=== PATIENT | female | born 1980 | race Caucasian/White ===

== ENCOUNTER 2020-06-19 02:29 | Emergency (ER) | payer SELFPAY ==
[2020-06-19 02:34] VITALS: PULSE 117; RESP 28; TEMP 35.8; O2SAT 100; BMI 27.4
--- NOTE | 2020-06-19 02:41 | ED_ITS ---
HPI - Abdominal Pain General: Chief Complaint: Abdominal Pain Stated Complaint: severe ab pain Time Seen by Provider: 06/19/20 02:37 Source: patient Mode of arrival: ambulatory Limitations: no limitations History of Present Illness: HPI narrative: 39-year-old female states she had sudden abdominal pain 3 hours ago. States the pain is diffuse in nature and severe. She rates her pain a 10 out of 10. She has had nausea denies any diarrhea or vomiting. She denies any fever. Denies any worsening improving factors. MD elicited complaint: abdominal pain Associated Symptoms: Denies chills, diarrhea, dysuria, fever(s), nausea and vomiting Review of Systems Const: Denies: fever(s), chills, body aches or change in appetite Eyes: Denies: blurry vision or eye discomfort ENMT: Denies: throat pain or dental pain Card: Denies: chest pain Resp: Denies: dyspnea GI: Denies: abdominal pain, nausea, vomiting or diarrhea : Denies: dysuria Musc: Denies: neck pain or back pain Skin/Breast: Denies: rash Neuro: Denies: headache(s) Psych: Denies: depression Garth/Lymph: Denies: easy bruising All/Imm: Denies: urticaria Physical Exam Const: COMMON NORMALS: no acute distress, patient oriented x3 and healthy appearing HENMT: COMMON NORMALS: normocephalic and atraumatic HEAD & SCALP: normocephalic and atraumatic Eye: COMMON NORMALS: Equal, round and reactive pupils present and EOMs intact bilaterally PUPIL: Yes Equal, round and reactive pupils present Neck/C-Spine: COMMON NORMALS: full ROM and supple Chest: COMMONS NORMALS: normal inspection of the chest and normal palpation of entire chest wall Resp: COMMON NORMALS: normal respiratory effort, No retractions, No use of accessory muscles and clear to auscultation bilaterally AUSCULTATION: clear to auscultation bilaterally Cardio: COMMON NORMALS: regular rate, regular rhythm and No murmurs present (Cardio) RATE: regular rate RHYTHM: regular rhythm GI: COMMON NORMALS: Normal to inspection, nondistended, normoactive bowel sounds present, Soft to palpation and no masses PALPATION: Yes Soft to palpation and Yes Tenderness to palpation present (GI) (diffuse tenderness) Extremity: COMMON NORMALS: normal to inspection and full ROM Neuro: COMMON NORMALS: patient oriented x3, moves all extremities and no focal motor deficits Psych: COMMON NORMALS: mental status grossly normal, Normal thought process present and cooperative THOUGHT PROCESS: Normal thought process present Skin: COMMON NORMALS: no rashes or lesions noted and no wounds GENERAL SKIN EXAM: no rashes or lesions noted Course Vital Signs: Vital signs: Vital Signs Temperature 96.4 F L 06/19/20 02:34 Pulse Rate 80 06/19/20 03:56 Respiratory Rate 12 06/19/20 03:56 Blood Pressure 179/116 06/19/20 03:56 Pulse Oximetry 99 06/19/20 03:56 MDM - Abdominal Pain MDM Narrative: Medical decision making narrative: Kassandra presents with abdominal pain likely from constipation. Her CT and blood work here are otherwise normal. Patient's urine drug screen did test positive for marijuana and methamphetamine. Her pain is improved here and her exam at discharge is benign with no signs of acute surgical abdomen. Her lactate level is normal as well. We will place her on MiraLAX and she is stable for discharge. She is to follow-up with her PCP and return if worsening. Lab Data: Labs: Lab Results 06/19/20 06/19/20 06/19/20 Range/Units 02:45 02:45 02:45 WBC 9.5 (4.0-10.0) 10^3/ uL RBC 5.03 (4.1-5.3) 10^6/u L Hgb 13.8 (11.5-15.3) g/dL Hct 43.0 (37.0-47.0) % MCV 85.5 (81-99) fL MCH 27.4 L (28.0-34.0) pg MCHC 32.1 (30.0-36.0) g/dL RDW 13.3 (12.1-15.1) % Plt Count 330 (130-400) 10^3/c mm MPV 8.9 (7.4-10.4) fL Neut % (Auto) 68.3 % Lymph % (Auto) 26.0 % [place] % (Auto) 5.1 % Eos % (Auto) 0.3 % Baso % (Auto) 0.2 % Neut # (Auto) 6.51 (1.8-7.7) 10^3/u L Lymph # (Auto) 2.5 (0.8-4.8) 10^3/u L [place] # (Auto) 0.5 (0.2-0.9) 10^3/u L Eos # (Auto) 0.0 (0.0-0.8) 10^3/u L Baso # (Auto) 0.0 (0.0-0.1) 10^3/u L Nucleated RBC % (a uto) 0 % Nucleated RBCs # 0.0 /100WBC Sodium 140 (136-145) mmol/L Potassium 4.3 (3.5-5.1) mmol/L Chloride 104 (98-107) mmol/L Carbon Dioxide 26 (22-29) mmol/L Anion Gap 14.3 (5-19) BUN 11 (6-20) mg/dL Creatinine 0.8 (0.5-0.9) mg/dL GFR Calculation 79.9 L (90-130) mL/min Glucose 107 (65-115) mg/dL Calculated Osmolal ity 290 (285-295) mOsm/k g Lactate 2.1 (0.5-2.2) mmol/L Calcium 9.6 (8.5-10.5) mg/dL Total Bilirubin 0.3 (0.15-1.2) mg/dL AST 22 (0-32) U/L ALT 29 (0-33) U/L Alkaline Phosphata se 83 (35-105) IU/L Total Protein 7.8 (6.6-8.7) g/dL Albumin 3.9 (3.5-5.2) g/dL Globulin 3.9 (1.3-4.6) g/dL Lipase 18 (13-60) U/L Urine Color (Yellow) Urine Appearance (CLEAR) Urine pH (5-7) Ur Specific Gravit y (1.005-1.030) Urine Protein (Negative) Urine Glucose (UA) (Normal) Urine Ketones (Negative) Urine Blood (Negative) Urine Nitrate (Negative) Urine Bilirubin (Negative) Prot Sulfosalicyli c Acd (Negative) Urine Urobilinogen (Negative) mg/dL Ur Leukocyte July ase (Negative) Urine RBC (0-2) /hpf Urine WBC (0-5) /hpf Ur Squamous Epith Cells (0-5) /hpf Amorphous Sediment /hpf Urine Bacteria (NONE) /hpf Urine Opiates Scre en (Negative) ng/mL Ur Barbiturates Sc reen (Negative) ng/mL Ur Phencyclidine S crn (Negative) ng/mL Ur Amphetamines Sc reen (Negative) ng/mL U Benzodiazepines Scrn (Negative) ng/mL Urine Cocaine Scre en (Negative) ng/mL U Marijuana (THC) Screen (Negative) ng/mL 06/19/20 06/19/20 Range/Units 04:40 04:40 WBC (4.0-10.0) 10^3/ uL RBC (4.1-5.3) 10^6/u L Hgb (11.5-15.3) g/dL Hct (37.0-47.0) % MCV (81-99) fL MCH (28.0-34.0) pg MCHC (30.0-36.0) g/dL RDW (12.1-15.1) % Plt Count (130-400) 10^3/c mm MPV (7.4-10.4) fL Neut % (Auto) % Lymph % (Auto) % [place] % (Auto) % Eos % (Auto) % Baso % (Auto) % Neut # (Auto) (1.8-7.7) 10^3/u L Lymph # (Auto) (0.8-4.8) 10^3/u L [place] # (Auto) (0.2-0.9) 10^3/u L Eos # (Auto) (0.0-0.8) 10^3/u L Baso # (Auto) (0.0-0.1) 10^3/u L Nucleated RBC % (a uto) % Nucleated RBCs # /100WBC Sodium (136-145) mmol/L Potassium (3.5-5.1) mmol/L Chloride (98-107) mmol/L Carbon Dioxide (22-29) mmol/L Anion Gap (5-19) BUN (6-20) mg/dL Creatinine (0.5-0.9) mg/dL GFR Calculation (90-130) mL/min Glucose (65-115) mg/dL Calculated Osmolal ity (285-295) mOsm/k g Lactate (0.5-2.2) mmol/L Calcium (8.5-10.5) mg/dL Total Bilirubin (0.15-1.2) mg/dL AST (0-32) U/L ALT (0-33) U/L Alkaline Phosphata se (35-105) IU/L Total Protein (6.6-8.7) g/dL Albumin (3.5-5.2) g/dL Globulin (1.3-4.6) g/dL Lipase (13-60) U/L Urine Color Yellow (Yellow) Urine Appearance Hazy A (CLEAR) Urine pH 9 H (5-7) Ur Specific Gravit y 1.010 (1.005-1.030) Urine Protein Neg (Negative) Urine Glucose (UA) Norm (Normal) Urine Ketones Negative (Negative) Urine Blood Neg (Negative) Urine Nitrate Negative (Negative) Urine Bilirubin Neg (Negative) Prot Sulfosalicyli c Acd Negative (Negative) Urine Urobilinogen Norm (Negative) mg/dL Ur Leukocyte July ase Negative (Negative) Urine RBC None (0-2) /hpf Urine WBC None (0-5) /hpf Ur Squamous Epith Cells 0-4 H (0-5) /hpf Amorphous Sediment 1+ /hpf Urine Bacteria 1+ H (NONE) /hpf Urine Opiates Scre en Positive H (Negative) ng/mL Ur Barbiturates Sc reen Negative (Negative) ng/mL Ur Phencyclidine S crn Negative (Negative) ng/mL Ur Amphetamines Sc reen Positive H (Negative) ng/mL U Benzodiazepines Scrn Negative (Negative) ng/mL Urine Cocaine Scre en Negative (Negative) ng/mL U Marijuana (THC) Screen Positive H (Negative) ng/mL Imaging Data ^: CT Abd/Pel: Attestation: I personally reviewed and interpreted this imaging study as follows: My impression: [address] [place] [address] CT Scan Report Signed Patient: Kassandra Moses Unit #: [id number] : 1980 Age/Sex: 39 / F ADM Date: 06/19/20 Loc: ER Room/Bed: Attending Dr: Ordering Provider/Ordering MD: Matt Baker MD Date of Service: 06/19/20 Procedure(s): CT abdomen pelvis w con* [id number] Accession Number(s): [id number] Report Number: [id number] PROCEDURE INFORMATION: Exam: CT Abdomen And Pelvis With Contrast Exam date and time: 06/19/2020 4:25 AM Age: 39 years old Clinical indication: Abdominal pain; Generalized; Additional info: Abd pain TECHNIQUE: Imaging protocol: Computed tomography of the abdomen and pelvis with contrast. Radiation optimization: All CT scans at this facility use at least one of these dose optimization techniques: automated exposure control; mA and/or kV adjustment per patient size (includes targeted exams where dose is matched to clinical indication); or iterative reconstruction. Contrast material: OMNI 300; Contrast volume: 95 ml; Contrast route: INTRAVENOUS (IV); COMPARISON: No relevant prior studies available. RADIATION DOSE METRICS: Total DLP (mGy-cm): 598.46 FINDINGS: Liver: Normal. No mass. Gallbladder and bile ducts: Normal. No calcified stones. No ductal dilation. Pancreas: Normal. No ductal dilation. Spleen: Normal. No splenomegaly. Adrenal glands: Normal. No mass. Kidneys and ureters: Normal. No hydronephrosis. Stomach and bowel: Unremarkable. No obstruction. Large amount of fecal residue is present in the colon specially on the right side. Appendix: No evidence of appendicitis. Intraperitoneal space: Unremarkable. No free air. No significant fluid collection. Vasculature: Unremarkable. No abdominal aortic aneurysm. Lymph nodes: Unremarkable. No enlarged lymph nodes. Urinary bladder: Unremarkable as visualized. Reproductive: Unremarkable as visualized. Bones/joints: Degenerative changes are present. No acute fracture. Soft tissues: Unremarkable. CT/CT abdomen pelvis w con* [id number] IMPRESSION: No significant abnormality is seen. Constipation is noted. Discharge Plan Discharge Patient Disposition: Home Clinical Impression: Abdominal pain Qualifiers: Abdominal location: unspecified location Qualified Code(s): R10.9 - Unspecified abdominal pain Constipation Qualifiers: Constipation type: unspecified constipation type Qualified Code(s): K59.00 - Constipation, unspecified Condition: Stable Prescriptions: New Miralax 17 gram/dose powder 17 g PO DAILY PRN (Reason: constipation) Qty: 119 RF: 0 Discharge Orders: Discharge ED (Routine); Ordered 06/19/20 Ordered By: Matt Baker Discharge Diet: Advance as tolerated Discharge Activity: Resume usual activity Patient Instructions: Abdominal Pain (ED) Coding Level of Care Code ED Pharmacy Technologist for Chg Fwd Exam Comprehensive
[2020-06-19 02:49] VITALS: BP 185/101; PULSE 116; RESP 18; O2SAT 98
[2020-06-19] MEDS: sodium chloride 0.9% 1,000 ML 999 ML IV (02:49)
[2020-06-19] MEDS: diphenhydrAMINE 50 mg/mL SDV 1mL IVP (02:49)
[2020-06-19 02:50] VITALS: RESP 24; O2SAT 98
[2020-06-19] MEDS: morphine 4 mg/mL SDV 1 mL IVP (02:50)
[2020-06-19] MEDS: metoclopramide 5 mg/mL SDV 2 mL 10 MG IVP (02:50)
[2020-06-19 02:51] LABS: Basophils % 0.2 %; Eosinophils % 0.3 %; Hemoglobin 13.8 g/dL (11.5-15.3); Lymphocytes # 2.5 10^3/uL (0.8-4.8); Mean Corpuscular HGB Conc 32.1 g/dL (30.0-36.0); Mean Corpuscular Hemoglobin 27.4 pg (28.0-34.0); Mean Corpuscular Volume 85.5 fL (81-99); Mean Platelet Volume 8.9 fL (7.4-10.4); Monocytes # 0.5 10^3/uL (0.2-0.9); Monocytes % 5.1 %; Neutrophils # 6.51 10^3/uL (1.8-7.7); Neutrophils % 68.3 %; Nucleated Red Blood Cells % 0 %; Platelet Count 330 10^3/cmm (130-400); Red Blood Count 5.03 10^6/uL (4.1-5.3); Red Cell Distribution Width 13.3 % (12.1-15.1); White Blood Count 9.5 10^3/uL (4.0-10.0)
[2020-06-19 03:07] LABS: Lactate (Lactic Acid level) 2.1 mmol/L (0.5-2.2)
[2020-06-19 03:12] LABS: Alanine Aminotransferase 29 U/L (0-33); Albumin Level 3.9 g/dL (3.5-5.2); Alkaline Phosphatase 83 IU/L (35-105); Anion Gap 14.3 (5-19); Aspartate Amino Transferase 22 U/L (0-32); Blood Urea Nitrogen 11 mg/dL (6-20); Calcium 9.6 mg/dL (8.5-10.5); Carbon Dioxide 26 mmol/L (22-29); Chloride 104 mmol/L (98-107); Creatinine Clr Calc Pharmacy 85.3665; Globulin 3.9 g/dL (1.3-4.6); Glomerular Filtration Rate 79.9 mL/min (90-130); Glucose 107 mg/dL (65-115); Lipase 18 U/L (13-60); Osmolality Calculated 290 mOsm/kg (285-295); Potassium 4.3 mmol/L (3.5-5.1); Sodium 140 mmol/L (136-145); Total Bilirubin 0.3 mg/dL (0.15-1.2); Total Protein 7.8 g/dL (6.6-8.7)
[2020-06-19 03:17] VITALS: BP 185/109; PULSE 112; RESP 24; O2SAT 100
[2020-06-19 03:56] VITALS: BP 179/116; PULSE 80; RESP 12; O2SAT 99
[2020-06-19] MEDS: iohexol 300 mg/mL 100 mL Btl IV (04:26)
[2020-06-19 04:51] LABS: Amphetamines Screen Urine Positive (Negative); Barbiturates Screen Urine Negative (Negative); Benzodiazepines Screen Urine Negative (Negative); Cocaine Screen Urine Negative (Negative); Opiate Screen Urine Positive (Negative); PCP Screen Urine Negative (Negative); THC Screen Urine Positive (Negative)
[2020-06-19 04:54] LABS: Add Urine Microscopic? YES; Bilirubin Urine Neg (Negative); Blood Urine Neg (Negative); Glucose Urine UA Norm (Normal); Ketones Urine Negative (Negative); Leukocyte Esterase Urine Negative (Negative); Nitrate Urine Negative (Negative); Protein Urine Neg (Negative); Sulfosalicylic Acid Urine Negative (Negative); Urine Appearance Hazy (CLEAR); Urine Color Yellow (Yellow); Urobilinogen Urine Norm (Negative); pH Urine 9 (5-7)
[2020-06-19 04:55] LABS: Add Urine Culture? No; Amorphous Sediment Urine 1+ /hpf; Bacteria Urine 1+ /hpf; Squamous Epithelial Cell Urine 0-4 /hpf (0-5)
[2020-06-19] MEDS: lactulose oral liq 20 gm/30 mL UDC PO (04:59)
[2020-06-19 05:10] VITALS: BP 167/115; PULSE 94; RESP 18; O2SAT 96
== END 2020-06-19 05:12 | disposition home or self-care (01) ==
PROVIDERS: Emergency Provider Emergency Medicine
DX: K59.00 Constipation, unspecified (principal)
CPT/HCPCS: 74177; 80053; 80306; 81001; 83605; 83690; 85025; 96361; 96374; 96375; 99284; J1200; J2270; J2765; J7030; Q9967

== ENCOUNTER 2021-02-15 16:46 | Emergency (ER) | payer SELFPAY ==
[2021-02-15 16:59] VITALS: BP 131/69; PULSE 102; RESP 18; O2SAT 98; BMI 25.9
[2021-02-15 17:17] VITALS: BP 139/84; PULSE 87; RESP 18; TEMP 37; O2SAT 99
--- NOTE | 2021-02-15 17:40 | ED_ITS ---
HPI - Skin/Abscess/Foreign Bdy General: Chief complaint: Skin/Abscess/Foreign Body Stated complaint: Bite Time Seen by Provider: 02/15/21 17:14 Source: patient Mode of arrival: ambulatory Limitations: no limitations History of Present Illness: HPI narrative: Increasing size lesion to right thigh. see nursing assessment. No fever. MD complaint: rash and abscess/boil Onset (ago): day(s) (8) Location: RLE (Right thigh) Severity: moderate Severity scale (1-10): 5 Quality: aching Pain Consistency: constant Relieving factors: none Exacerbating factors: palpation Context: none Associated symptoms: Reports no associated symptoms; Deny chills, fever(s), nausea or vomiting Treatments prior to arrival: none Review of Systems Const: Denies: fever(s) or chills ENMT: Denies: throat pain Card: Denies: chest pain Resp: Denies: dyspnea GI: Denies: abdominal pain, nausea or vomiting Musc: Denies: neck pain or back pain Skin/Breast: Reports: rash, pruritus, erythema, skin tenderness and skin swelling Neuro: Denies: headache(s) Psych: Denies: anxiety Garth/Lymph: Denies: enlarged lymph nodes [facility] ED Female Reproductive History: Date of last menstrual period: 02/13/21 Physical Exam Const: COMMON NORMALS: no acute distress, patient oriented x3, no limitations and well nourished GENERAL APPEARANCE: cooperative HENMT: COMMON NORMALS: normocephalic and atraumatic HEAD & SCALP: normocephalic and atraumatic FACE & SINUS: normal facial exam Eye: COMMON NORMALS: EOMs intact bilaterally Neck/C-Spine: COMMON NORMALS: full ROM, no lymphadenopathy, supple and no meningeal signs GENERAL: Yes normal visual inspection Lymph: LYMPHATIC: no lymphadenopathy noted Chest: COMMONS NORMALS: normal inspection of the chest and normal palpation of entire chest wall CHEST: No Ecchymosis present and No rash Resp: COMMON NORMALS: normal respiratory effort, No retractions and clear to auscultation bilaterally EFFORT & INSPECTION: No respiratory distress AUSCULTATION: clear to auscultation bilaterally Cardio: COMMON NORMALS: regular rate, regular rhythm and Peripheral pulses 2+ throughout JUGULAR VENOUS DISTENTION: no JVD RATE: regular rate RHYTHM: regular rhythm PERIPHERAL PULSES: Peripheral pulses 2+ throughout GI: COMMON NORMALS: Normal to inspection, nondistended, normoactive bowel sounds present and non-tender : COMMON NORMALS: Yes no CVA tenderness BLADDER/KIDNEY EXAM: Yes no CVA tenderness Back/Pelvis: COMMON NORMALS: no CVA tenderness Extremity: COMMON NORMALS: normal to inspection, full ROM and capillary refill normal Neuro: COMMON NORMALS: patient oriented x3, CN's II-XII intact bilaterally, no focal motor deficits and no sensory deficits noted MENINGEAL SIGNS: Yes no meningeal signs Psych: COMMON NORMALS: mental status grossly normal and Normal thought process present THOUGHT PROCESS: Normal thought process present Skin: COMMON NORMALS: no wounds NARRATIVE SKIN EXAM: Approximately 1.5 cm diameter tender fluctuant abscess to right medial thigh. Patient has surrounding cellulitis. Minimal induration. Peripheral pulses are normal. Procedures Abscess I/D Site: lower extremity (r medial thigh) Side (if applicable): right Sedation/analgesia: none Local Anesthetic: lidocaine 1% and with epi Amount of anesthesia used (mL): 8 Technique: incised with #11 blade Amount of fluid expressed (mL): 3 Irrigation: Yes Packing used?: plain Complications: other (none; 1.5cm incision made with 11 blade. Purulent discharge. Tolerated well) Course Vital Signs: Vital signs: Vital Signs Temperature 98.6 F 02/15/21 17:17 Pulse Rate 87 02/15/21 17:17 Respiratory Rate 18 02/15/21 17:17 Blood Pressure 139/84 02/15/21 17:17 Pulse Oximetry 99 02/15/21 17:17 MDM - Skin/Abscess/Foreign Bdy MDM Narrative: Medical decision making narrative: Patient will be discharged home after IV antibiotics infused. Discharge Plan Discharge Clinical Impression: Encounter for incision and drainage procedure Abscess of skin or subcutaneous tissue Qualifiers: Site of cutaneous abscess: extremity Site of cutaneous abscess of extremity: lower extremity Laterality: right Qualified Code(s): L02.415 - Cutaneous abscess of right lower limb Condition: Stable Prescriptions: New sulfamethoxazole-trimethoprim [Bactrim DS] 800-160 mg tablet 1 tab PO BID 7 Days Qty: 14 RF: 0 cephalexin 500 mg capsule 500 mg PO QID 7 Days Qty: 28 RF: 0 No Action Miralax 17 gram/dose powder 17 g PO DAILY PRN (Reason: constipation) Qty: 119 RF: 0 Discharge Activity: Resume usual activity Patient Instructions: Cellulitis (ED), Abscess (ED), Abscess Incision and Drainage (DC) Activity Restrictions/Additional Instructions: Have gauze removed in about 48 hours. Return if no improvement. Start cephalexin and bactrim tomorrow afternoon. Keep wound clean. Coding Level of Care Code ED Overhead Crane Inspector for Yanickg Fwd Exam Comprehensive
[2021-02-15] MEDS: sodium chloride 0.9% (100 ml) 100 ML 200 ML (18:08)
[2021-02-15] MEDS: cefTRIAXone 1,000 MG in sodium chloride 0.9% (plus) 50 ML 100 MG IV (18:09)
[2021-02-15] MEDS: HYDROcodone-acetaminophen 5-325 mg Tablet 1 TAB PO (18:43)
[2021-02-15] MEDS: vancomycin 1,250 MG/250 ML PIGGYBACK 250 MG IV (18:49)
[2021-02-15 20:13] VITALS: BP 131/77; PULSE 80; RESP 20; O2SAT 98
== END 2021-02-15 20:10 | disposition home or self-care (01) ==
PROVIDERS: Emergency Provider Family Medicine
DX: L02.415 Cutaneous abscess of right lower limb (principal)
CPT/HCPCS: 10060; 96365; 96367; 99283; J0696; J3370

== ENCOUNTER 2021-02-16 18:04 | Emergency (ER) | payer SELFPAY ==
[2021-02-16 18:18] VITALS: BP 108/64; PULSE 70; RESP 18; TEMP 36.6; O2SAT 98; BMI 25.9
--- NOTE | 2021-02-16 18:30 | W.ED.SKABFB ---
HPI - Skin/Abscess/Foreign Bdy General: Chief complaint: Skin/Abscess/Foreign Body Stated complaint: bug bite on R leg Time Seen by Provider: 02/16/21 18:23 History of Present Illness: HPI narrative: Patient presents back to the ER with increased redness to bite area. Patient did not get antibiotic prescription filled. Patient denies fever chills. MD complaint: insect bite/sting Onset (ago): day(s) Location: RLE Severity: mild Severity scale (1-10): 1 Associated symptoms: Reports no associated symptoms; Deny chills, fever(s), nausea or vomiting Review of Systems Const: Denies: fever(s), chills or body aches Eyes: Denies: change in vision or blurry vision ENMT: Denies: throat pain or nasal congestion Card: Denies: chest pain or dyspnea on exertion Resp: Denies: dyspnea, productive cough or non-productive cough GI: Denies: abdominal pain, nausea or vomiting Musc: Denies: extremity pain Skin/Breast: Reports: erythema (About I&D area, patient did not get antibiotics filled yesterday.); Denies: rash Neuro: Denies: headache(s) Psych: Denies: anxiety or depression Garth/Lymph: Denies: easy bruising [facility] ED Female Reproductive History: Date of last menstrual period: 02/13/21 Physical Exam Const: COMMON NORMALS: no acute distress GENERAL APPEARANCE: cooperative Resp: COMMON NORMALS: normal respiratory effort Skin: OTHER: Mild superficial redness surrounding I&D area. Packing in without significant drainage. No induration noted. Size redness approximately 2 inches circular about the I&D area. Course Vital Signs: Vital signs: Vital Signs Temperature 97.9 F 02/16/21 18:18 Pulse Rate 70 02/16/21 18:18 Respiratory Rate 18 02/16/21 18:18 Blood Pressure 108/64 02/16/21 18:18 Pulse Oximetry 98 02/16/21 18:18 Discharge Plan Discharge Prescriptions: No Action Miralax 17 gram/dose powder 17 g PO DAILY PRN (Reason: constipation) Qty: 119 RF: 0 cephalexin 500 mg capsule 500 mg PO QID 7 Days Qty: 28 RF: 0 Bactrim DS 800-160 mg tablet 1 tab PO BID 7 Days Qty: 14 RF: 0 Coding Level of Care Code ED Sub Assembly Team Worker for Kurtis Mojica
[2021-02-16 18:37] VITALS: BP 116/66; PULSE 70; RESP 16; TEMP 36.7; O2SAT 100
--- NOTE | 2021-02-16 18:44 | PC.NURSE ---
area on right knee is marked and dated.
[2021-02-16] MEDS: sulfamethoxazole-trimeth DS 160-800 mg Tablet 1 TAB PO (18:46)
[2021-02-16 18:48] VITALS: BP 120/71; PULSE 74; RESP 16; TEMP 36.9; O2SAT 99
== END 2021-02-16 18:56 | disposition home or self-care (01) ==
PROVIDERS: Emergency Provider Nurse Practitioner Family
DX: L98.9 Disorder of the skin and subcutaneous tissue, unspecified (principal)
CPT/HCPCS: 99282